=== PATIENT | male | born 1990 | race Caucasian/White ===

== ENCOUNTER 2021-02-09 09:15 | Day surgery (SDC) | payer OTHER ==
[~2021-02-09] VITALS: Ht 182.9 cm; Wt 88.5 kg
[2021-02-09 09:15] VITALS: BP 141/73
[~2021-02-09 09:15] MED LIST: ACETAMINOPHEN 500 MG TABLET PO PRN; BUPIVACAINE-EPI 0.25% 30 ML VIAL KIT. ONE; HYDROmorphone 2 MG/ML VIAL IVP PRN; IV RINGERS,LACTATED 1000ML 1,000 ML IV SCH; MINERAL OIL for SURGERY 10 ML VIAL. MC ONE; MORPHINE SULFATE 2 MG/ML INJ. IVP PRN; PROCHLORPERAZINE 10 MG/2 ML VIAL. IVP PRN; fentaNYL PF VIAL 100 MCG/2 ML VIAL IVP PRN
[2021-02-09] MEDS ORDERED: PROPOFOL 100 ML IV ONE (09:18)
[2021-02-09] MEDS ORDERED: VECURONIUM BOLUS 10 MG VIAL. IV ONE (09:19)
[2021-02-09] MEDS ORDERED: fentaNYL PF VIAL 100 MCG/2 ML VIAL ONE (09:20)
[2021-02-09] MEDS ORDERED: ONDANSETRON PF 4 MG/2 ML VIAL. ONE (10:30)
[2021-02-09] MEDS ORDERED: LIDOCAINE 1% PF 5 ML VIAL. ONE (10:30)
[2021-02-09] MEDS ORDERED: DEXAMETHASONE SOD PHOS 4 MG/ML VIAL ONE (10:30)
[2021-02-09] MEDS ORDERED: HYDROmorphone 2 MG/ML VIAL ONE (10:50)
--- NOTE | 2021-02-09 11:09 | PDOC1 ---
History and Physical Date of Admission Date of Admission DATE: 02/09/21 TIME: 11:06 Identification/Chief Complaint Chief Complaint Right inguinal hernia Source Source: Patient History of Present Illness History of Present Illness 30-year-old male with complaints of a painful bulge in his right groin has been present for approximately 2 months feels like it is getting larger and becoming more uncomfortable Past Medical History Cardiovascular: No pertinent hx Pulmonary: No pertinent hx GI: No pertinent hx Heme/Onc: No pertinent hx Hepatobiliary: No pertinent hx Psych: No pertinent hx Rheumatologic: No pertinent hx Infectious disease: No pertinent hx ENT: No pertinent hx Endocrine: No pertinent hx Dermatology: No pertinent hx Past Surgical History Past Surgical History: No pertinent history Family History Family History: No Significant Social History Smoke: No ALCOHOL: none Drugs: None Current Medications Current Medications Current Medications Cefazolin Sodium/ Dextrose 50 ml @ 100 mls/hr 1X PREOP PRN IV PRIOR TO PROCEDURE; Start 02/09/21 at 06:00; Stop 02/09/21 at 18:00 Acetaminophen (Tylenol) 1,000 mg 1X PREOP PRN PO PRIOR TO PROCEDURE Last administered on 02/09/21at 09:37; Start 02/09/21 at 06:00 Fentanyl Citrate (Fentanyl 2ml Vial) 25 mcg PRN Q5MIN PRN IVP MILD PAIN 1-3; Start 02/09/21 at 06:00; Stop 02/10/21 at 05:59 Fentanyl Citrate (Fentanyl 2ml Vial) 50 mcg PRN Q5MIN PRN IVP MODERATE PAIN 4- 6; Start 02/09/21 at 06:00; Stop 02/10/21 at 05:59 Morphine Sulfate (Morphine Sulfate) 1 mg PRN Q10MIN PRN IVP SEVERE PAIN 7-10; Start 02/09/21 at 06:00; Stop 02/10/21 at 05:59 Ringer's Solution 1,000 ml @ 30 mls/hr Q24H IV Last administered on 02/09/21at 09:24; Start 02/09/21 at 06:00; Stop 02/09/21 at 17:59 Hydromorphone HCl (Dilaudid) 0.5 mg PRN Q10MIN PRN IVP SEVERE PAIN 7-10, 2nd CH OICE; Start 02/09/21 at 06:00; Stop 02/10/21 at 05:59 Prochlorperazine Edisylate (Compazine) 5 mg PACU PRN PRN IVP NAUSEA, MRX1; Start 02/09/21 at 06:00; Stop 02/10/21 at 05:59 Bupivacaine HCl/ Epinephrine Bitart (Sensorcain-Epi 0.25% Kit) 30 ml STK-MED ONCE .ROUTE ; Start 02/09/21 at 09:00; Stop 02/09/21 at 09:01; Status DC Mineral Oil (Muri-Lube) 10 ml STK-MED ONCE MC ; Start 02/09/21 at 09:00; Stop 02/09/21 at 09:01; Status DC Propofol 100 ml @ As Directed STK-MED ONCE IV ; Start 02/09/21 at 09:18; Stop 02/09/21 at 09:19; Status DC Vecuronium Flint (Norcuron Bolus) 10 mg STK-MED ONCE IV ; Start 02/09/21 at 09:19; Stop 02/09/21 at 09:19; Status DC Fentanyl Citrate (Fentanyl 2ml Vial) 100 mcg STK-MED ONCE .ROUTE ; Start 02/09/21 at 09:20; Stop 02/09/21 at 09:21; Status DC Dexamethasone Sodium Phosphate (Decadron) 4 mg STK-MED ONCE .ROUTE ; Start 02/09/21 at 10:30; Stop 02/09/21 at 10:30; Status DC Ondansetron HCl (Zofran) 4 mg STK-MED ONCE .ROUTE ; Start 02/09/21 at 10:30; Stop 02/09/21 at 10:31; Status DC Lidocaine HCl (Xylocaine-Mpf 1% 5ml Vial) 5 ml STK-MED ONCE .ROUTE ; Start 02/09/21 at 10:30; Stop 02/09/21 at 10:31; Status DC Hydromorphone HCl (Dilaudid) 2 mg STK-MED ONCE .ROUTE ; Start 02/09/21 at 10:50; Stop 02/09/21 at 10:50; Status DC Active Scripts Active Reported No Known Medications Prior To Admisstion (Info) Each 1 Each DAILY Allergies Allergies: Coded Allergies: egg (Verified Allergy, Intermediate, Unknown, 02/09/21) gelatin (Verified Allergy, Intermediate, Unknown, 02/09/21) latex (Verified Allergy, Intermediate, Unknown, 02/09/21) neomycin (Verified Allergy, Intermediate, Unknown, 02/09/21) ROS Genitourinary: YES Pain (Right groin) Physical Exam General: Alert, Oriented X3, Cooperative, No acute distress HEENT: Atraumatic, EOMI Lungs: Clear to auscultation, Normal air movement Heart: RRR, no murmurs Abdomen: Normal bowel sounds, Soft, No tenderness Male Genitals Exam: hernia, other (Right) Rectal Exam: not examined Extremities: No edema Skin: No significant lesion Neuro: Normal speech Psych/Mental Status: Mental status NL Vitals Vitals Vital Signs Date Time Temp Pulse Resp B/P (MAP) Pulse Ox O2 Delivery O2 Flow Rate FiO2 02/09/21 09:20 97.7 99 141/73 99 Room Air 97.7 02/09/21 09:15 18 VTE Prophylaxis Ordered VTE Prophylaxis Devices: Yes VTE Pharmacological Prophylaxi: Contraindicated Assessment/Plan Assessment/Plan Right inguinal hernia, plan robotic assisted laparoscopic right inguinal hernia repair with mesh Justifications for Admission Other Justification MICHAEL ALMAZAN MD Feb 09, 2021 11:09
[2021-02-09] MEDS ORDERED: PROPOFOL 10 MG/ML (20ML) VIAL. IV ONE (11:46)
[2021-02-09] MEDS ORDERED: GLYCOPYRROLATE 1 MG/5 ML VIAL. ONE (12:06)
[2021-02-09] MEDS ORDERED: NEOSTIGMINE 10 MG/10 ML VIAL. ONE (12:07)
--- NOTE | 2021-02-09 12:48 | PDOC4 ---
Operative Note Operative Note Date: February 092020 at 12:46 PM Preoperative diagnosis: Right inguinal hernia Postoperative diagnosis: Same Procedure: Robotic assisted laparoscopic right inguinal hernia repair with mesh Surgeon: Maximilian Specimen: None Dictation: Patient is a 30-year-old male with complaints of a painful bulge in his right groin consistent with a hernia. Procedure robotic assisted laparoscopic right inguinal hernia repair with mesh was explained to the patient detail risk benefits were also discussed including bleeding infection injury to intra-abdominal contents possible necessitating further open operations alternatives to this procedure also discussed with the patient who seemed to understand and gave a verbal written consent to have the procedure performed. Patient was taken to the operating room placed in the supine position general anesthesia was initiated once patient was sleeping intubated he was placed in low lithotomy positioning and his abdomen was prepped and draped usual sterile fashion using ChloraPrep. Area just above the umbilicus was injected with quarter percent Marcaine with epinephrine and incision was made with 11 blade scalpel and a varies needle was placed within the abdomen creating pneumoperitoneum once this was complete a millimeter ventral port was placed the da Jose F camera's placed within the abdomen which was inspected was noted there is quite large right inguinal hernia. 8 mm ventral port was placed in the right midabdomen and an 8 mm da Jose F ports placed in left midabdomen the da Jose F robot is brought in and docked all port sites. Surgeon went to the robotic console using a grasper and Endo Andi scissors the peritoneum on the right side was incised a window was propagated inferiorly using blunt sharp dissection. The hernia sac and contents were reduced using blunt sharp dissection. A large Bard 3D max mesh for the right side was then placed over the groin area covering the hernia the peritoneum was then closed with a running 2 OV lock absorbable suture. Suture was moved from the abdomen the da Jose F was undocked from all port sites all ports were removed the pneumoperitoneum was reduced all port sites were closed for subcuticular Monocryl Mastisol Steri- Strips and island dressings were applied. Patient was awakened extubated operating room taken to recovery in stable condition all sponge instrument needle counts listed as correct estimated blood loss 5 mL MICHAEL ALMAZAN MD Feb 09, 2021 12:48
--- NOTE | 2021-02-09 12:50 | DISCH ---
DISCHARGE INSTRUCTIONS Condition on Discharge Condition on Discharge: Stable Activity After Discharge Activity Instructions for Disc: Avoid exertion Other activity instructions: No lifting more than 20 pounds for 2 weeks Diet after Discharge Diet after Discharge: Regular Wound Incision Care Other wound/incision instructi: May shower in 24 hours Contacting the [facility] after DC Call your doctor for: If your condition worsens Follow-Up Follow up with: Dr. Almazan in 2-week MICHAEL ALMAZAN MD Feb 09, 2021 12:50
[2021-02-09] MEDS ORDERED: ACETAMINOPHEN 500 MG TABLET PO ONE (13:15)
[2021-02-09 13:21] VITALS: BP 138/77
== END 2021-02-09 13:45 | disposition home or self-care (01) ==
LOC: SURG 09:15 → EEVIPCON 11:15 → SURG 13:45
PROVIDERS: ATTEND Surgery
DX: K40.90 Unilateral inguinal hernia, without obstruction or gangrene, not specified as recurrent (principal); Z79.899 Other long term (current) drug therapy; Z98.890 Other specified postprocedural states
CPT/HCPCS: 49650; A4209; A4364; A4930; A6219; C1781; J0690; J1100; J1170; J2405; J2704; J2710; J3010; J3490; S2900; A4657

== ENCOUNTER 2021-04-01 03:08 | Emergency (ER) | payer OTHER ==
[~2021-04-01] VITALS: Ht 182.9 cm; Wt 90.7 kg
[2021-04-01] MEDS ORDERED: KETOROLAC 30 MG/ML VIAL. ONE (03:34)
--- NOTE | 2021-04-01 03:38 | PHYS DOC ---
Past Medical History Past Surgical History: Other Additional Past Surgical Histo: hernia Smoking Status: Current Every Day Smoker Alcohol Use: None General Adult EDM: Chief Complaint: TESTICULAR PAIN OR INJURY HPI: HPI: Patient is a 30 year old male with past surgical right inguinal hernia repair presents with a chief complaint of right groin pain. Patient states he has had groin pain for the last several weeks today progressively coming worse. Pain is located in the right groin patient appreciates some swelling. He denies any testicular pain no problems urinating. Review of Systems: Review of Systems: Constitutional: Denies fever or chills. [] Eyes: Denies change in visual acuity. [] HENT: Denies nasal congestion or sore throat. [] Respiratory: Denies cough or shortness of breath. [] Cardiovascular: Denies chest pain or edema. [] GI: Denies abdominal pain, nausea, vomiting, bloody stools or diarrhea. [] : Denies dysuria. [positive groin pain] Musculoskeletal: Denies back pain or joint pain. [] Integument: Denies rash. [] Neurologic: Denies headache, focal weakness or sensory changes. [] Endocrine: Denies polyuria or polydipsia. [] Lymphatic: Denies swollen glands. [] Psychiatric: Denies depression or anxiety. [] Heart Score: C/O Chest Pain: N/A Risk Factors: Risk Factors: DM, Current or recent (<one month) smoker, HTN, HLP, family history of CAD, obesity. Risk Scores: Score 0 - 3: 2.5% MACE over next 6 weeks - Discharge Home Score 4 - 6: 20.3% MACE over next 6 weeks - Admit for Clinical Observation Score 7 - 10: 72.7% MACE over next 6 weeks - Early Invasive Strategies Current Medications: Current Medications Medications (Trade) Dose Ordered Sig/Debby Start Time Stop Time Status Last Admin Dose Admin Ketorolac Tromethamine (Toradol 30mg Vial) 30 mg STK-MED ONCE 04/01/21 03:34 04/01/21 03:35 DC Allergies: Allergies: Allergies Coded Allergies Type Severity Reaction Last Updated Verified No Known Drug Allergies 04/01/21 No Physical Exam: PE: Constitutional: Well developed, well nourished, no acute distress, non-toxic appearance. [] HENT: Normocephalic, atraumatic, bilateral external ears normal, oropharynx moist, no oral exudates, nose normal. [] Eyes: PERRLA, EOMI, conjunctiva normal, no discharge. [] Neck: Normal range of motion, no tenderness, supple, no stridor. [] Cardiovascular:Heart rate regular rhythm, no murmur [] Lungs & Thorax: Bilateral breath sounds clear to auscultation [] Abdomen: Bowel sounds normal, soft, no tenderness, no masses, no pulsatile masses. [] Skin: Warm, dry, no erythema, no rash. [] Back: No tenderness, no CVA tenderness. [] Extremities: No tenderness, no cyanosis, no clubbing, ROM intact, no edema. [] Neurologic: Alert and oriented X 3, normal motor function, normal sensory function, no focal deficits noted. [] Psychologic: Affect normal, judgement normal, mood normal. [] Current Patient Data: Vital Signs: Vital Signs Date Time Temp Pulse Resp B/P (MAP) Pulse Ox O2 Delivery O2 Flow Rate FiO2 04/01/21 03:11 98.2 100 16 162/80 (107) 97 Room Air 98.2 EKG: EKG: [] Radiology/Procedures: Radiology/Procedures: [] Course & Med Decision Making: Course & Med Decision Making Pertinent Labs and Imaging studies reviewed. (See chart for details) [] Patient evaluated for chief complaint. CT imaging shows no hernia postoperative changes for hernia repair. Treated with Toradol with improvement. Patient discharged home with Ultram and prednisone When discussing patient's results he was request to be evaluated for a rash that he is on had on his face and chest for several weeks. Will prescribe Medrol Dosepak. Dragon Disclaimer: Dragon Disclaimer: This electronic medical record was generated, in whole or in part, using a voice recognition dictation system. Departure Departure Impression: Primary Impression: Right inguinal hernia Additional Impression: Rash and nonspecific skin eruption Disposition: HOME / SELF CARE / HOMELESS Condition: STABLE Referrals: HAYES SEALS MD (PCP) Patient Instructions: Pain Relief Preoperatively and Postoperatively, Rash Scripts Tramadol Hcl (ULTRAM) 50 Mg Tablet 1 TAB PO PRN Q6HRS PRN for pain MDD 4 Tablet(s) for 7 Days, #28 TAB 0 Refills Prov: GAGE CASAS I DO 04/01/21 Prednisone (PREDNISONE) 20 Mg Tablet 1 TAB PO UD for 12 Days, #15 TAB Take 2 tabs days 1,2,3 1.5 tabs days 3,4,5 1 tab days 6,7,8 0.5 tab days 9,10,11 Prov: GAGE CASAS DO 04/01/21 GAGE CASAS DO Apr 01, 2021 03:38
[2021-04-01 03:42] LABS: BASO # 0.1 x10^3/uL (0.0-0.2); BASO % 1 % (0-3); EOS # 0.2 x10^3/uL (0.0-0.7); EOS % 2 % (0-3); HEMATOCRIT 43.1 % (39.0-53.0); HEMOGLOBIN 14.7 g/dL (13.0-17.5); LYMPH # 2.8 x10^3/uL (1.0-4.8); LYMPH % 33 % (24-48); MEAN CORPUSCULAR HEMOGLOBIN 30 pg (25-35); MEAN CORPUSCULAR HGB CONC 34 g/dL (31-37); MEAN CORPUSCULAR VOLUME 86 fL (79-100); MONO # 0.5 x10^3/uL (0.0-1.1); MONO % 6 % (0-9); NEUT # 4.9 x10^3/uL (1.8-7.7); NEUT % 58 % (31-73); PLATELET COUNT 310 x10^3/uL (140-400); RED BLOOD COUNT 4.99 x10^6/uL (4.30-5.70); RED CELL DISTRIBUTION WIDTH 12.7 % (11.5-14.5); WHITE BLOOD COUNT 8.5 x10^3/uL (4.0-11.0)
[2021-04-01] MEDS ORDERED: KETOROLAC 30 MG/ML VIAL. IVP ONE (03:45)
[2021-04-01] MEDS ORDERED: IOHEXOL 300 MG/ML 100ML VIAL. IV ONE (03:45)
[2021-04-01 03:53] LABS: CALCIUM 8.4 mg/dL (8.5-10.1); GFR 87.7; POTASSIUM 3.7 mmol/L (3.5-5.1)
[2021-04-01 03:59] LABS: ALBUMIN/GLOBULIN RATIO 1.1 (1.0-1.7); TOTAL BILIRUBIN 0.3 mg/dL (0.2-1.0); TOTAL PROTEIN 7.5 g/dL (6.4-8.2)
[2021-04-01] MEDS ORDERED: CONTRAST GIVEN. MC PRN (04:00)
[2021-04-01 04:26] VITALS: BP 137/60
--- NOTE | 2021-04-01 04:31 | RAD ---
EXAM: CT ABDOMEN/PELVIS WITH CONTRAST. HISTORY: Born pain, hernia. TECHNIQUE: Computed tomography of the abdomen and pelvis was performed after the intravenous administ ration of iodinated contrast. One or more of the following individualized dose reduction techniques w ere utilized for this examination: 1. Automated exposure control. 2. Adjustment of the mA and/or kV according to patient size. 3. Use of iterative reconstruction technique. COMPARISON: None. FINDINGS: Lung windows through the visualized portions of the bases reveal mild atelectasis. Bone win dows reveal no suspicious lesions. The liver, gallbladder, pancreas, adrenal glands, kidneys and spleen are unremarkable. There are no p athologically enlarged lymph nodes. There is mild stranding along the right inguinal internal ring. There is no clear hernia. Stool throughout the colon is consistent with constipation. There is no small bowel obstruction. Ther e is no evidence of appendicitis. IMPRESSION: 1. Stranding along the right inguinal internal ring may reflect changes of prior inguinal hernia repa ir or mild ecchymosis. No hernia is identified. 2. Correlate for constipation. Electronically signed by: Julieta Boyd MD (04/01/2021 4:28 AM) [facility]
[2021-04-01] MEDS ORDERED: TRAM-48 PO (04:51)
[2021-04-01] MEDS ORDERED: PRED20TA PO (04:51)
== END 2021-04-01 05:00 | disposition home or self-care (01) ==
LOC: EEVIPCON 03:08 → ER 03:43
DX: K40.90 Unilateral inguinal hernia, without obstruction or gangrene, not specified as recurrent (principal); R21 Rash and other nonspecific skin eruption; F17.200 Nicotine dependence, unspecified, uncomplicated
CPT/HCPCS: 36415; 74177; 80053; 85025; 96374; 99285; J1885; Q9967